=== PATIENT | male | born 1945 | race Caucasian/White ===

== ENCOUNTER 2018-08-04 15:44 | Inpatient (IN) | payer MEDICARE, BC ==
[~2018-08-04] VITALS: Ht 172.7 cm; Wt 76.7 kg
[2018-08-04 16:04] VITALS: BP 122/62
[2018-08-04] MEDS ORDERED: Sodium Chloride 500ML 500 ML IV ONE (16:30)
[2018-08-04 17:11] LABS: INR 1.3 (0.9-1.1)
[2018-08-04 17:15] LABS: ANION GAP 14 mmol/L (5-15); BLOOD UREA NITROGEN 25 mg/dL (7-18); CALCIUM 7.2 MG/DL (8.5-10.1); CARBON DIOXIDE 19 MMOL/L (21-32); CHLORIDE 105 MMOL/L (98-107); CREATININE 0.9 MG/DL (0.55-1.30); SODIUM 138 MMOL/L (136-145)
[2018-08-04] MEDS ORDERED: Albuterol ud Inhalation HHN ONE (17:15)
[2018-08-04] MEDS ORDERED: Albuterol/Ipratropium 3ml neb HHN ONE (17:15)
[2018-08-04] MEDS ORDERED: Solu-MEDROL 125mg Inj IVP ONE (17:15)
[2018-08-04 17:21] LABS: HEMATOCRIT 35.1 % (42.0-52.0); HEMOGLOBIN 11.3 G/DL (14.2-18.0); MEAN CORPUSCULAR VOLUME 89 FL (80-99); PLATELET COUNT 28 K/UL (150-450); RED BLOOD COUNT 3.95 M/UL (4.70-6.10); RED CELL DISTRIBUTION WIDTH 18.6 % (11.6-14.8); WHITE BLOOD COUNT 2.5 K/UL (4.8-10.8)
[2018-08-04 17:24] LABS: BASOPHILS % (AUTO) 0.5 % (0.0-2.0); LYMPHOCYTES % (AUTO) 16.8 % (20.0-45.0); MONOCYTES % (AUTO) 5.9 % (1.0-10.0); NEUTROPHILS % (AUTO) 76.8 % (45.0-75.0)
[2018-08-04 17:30] LABS: ALANINE AMINOTRANSFERASE 87 U/L (12-78); ALBUMIN 2.2 G/DL (3.4-5.0); ALBUMIN/GLOBULIN RATIO 0.8 (1.0-2.7); ALKALINE PHOSPHATASE 593 U/L (46-116); ASPARTATE AMINO TRANSFERASE 72 U/L (15-37); BILIRUBIN,TOTAL 2.9 MG/DL (0.2-1.0)
--- NOTE | 2018-08-04 17:31 | Emergency Room Report ---
History of Present Illness General Chief Complaint: Dyspnea/Respdistress Source: EMS Present Illness HPI Patient is a 73-year-old male brought in by [facility] department after increased difficulty breathing. The patient was noted to have prior history of Hodgkin's lymphoma. The patient had been given chemotherapy with brevituximab, Adriamycin, vinblastine and darcarbazine. Patient was noted to have increased shortness of breath during brevituximb infusion. Patient was noted to have had desaturation. The patient is currently a smoker and smokes approximate cigarettes per day. Patient presented been noted to be thrombocytopenic. Allergies: Coded Allergies: No Known Allergies (Unverified , 08/04/18) Nursing Documentation-[facility] Past Medical History: No History, Except For Hx Cancer: Yes - HODGKINS AND NON-HODGKINS LYMPHOMA History Of Psychiatric Problem: Yes - ANXIETY Physical Exam Vital Signs Date Time Temp Pulse Resp B/P (MAP) Pulse Ox O2 Delivery O2 Flow Rate FiO2 08/04/18 16:04 40 08/04/18 16:04 99.2 130 31 122/62 93 Bi-pap 99.2 General Appearance: alert, GCS 15, thin, Chronically Ill Head: normocephalic Eyes: bilateral eye normal inspection ENT: no angioedema, normal voice Neck: full range of motion Respiratory: decreased breath sounds, accessory muscle use, crackles Cardiovascular #1: no edema, tachycardia Gastrointestinal: normal inspection Genitourinary: normal inspection Musculoskeletal: normal inspection Neurologic: normal inspection, alert, oriented x3, responsive Psychiatric: normal inspection, judgement/insight normal Skin: mottled Procedures Critical Care Time Critical Care Time Patient had a critical medical condition which untreated could potentially result in life or limb threatening injury. Total critical care time excluding procedures approximately 45 minutes. Medical Decision Making Diagnostic Impression: Primary Impression: Metabolic acidosis Additional Impressions: Hodgkins lymphoma Chemotherapy adverse reaction Myocardial injury ER Course Patient is a 73-year-old male presented for shortness of breath.Differential included but was not limited to allergic reaction, anemia, pneumonia, pneumothorax, pulmonary embolism, myocardial infarction, pericardial effusion, congestive heart failure, acidosis. Because of complexity of patient's case laboratory testing and imaging studies were ordered.The patient was noted to be initially severely short of breath. Patient had been given first dose of chemotherapy with a monoclonal antibody infusion which was ongoing at the time of initial shortness of breath episode. The patient was started on IV steroids at the clinic. The patient was noted to have a chest x-ray with asymmetric infiltrate involving primarily the left lung. Patient was started on BiPAP due to respiratory distress he was started on IV fluids as well as breathing treatments.The patient was noted to have initially positive troponin. This is likely related to the patient's chemotherapy. The patient was noted to be thrombocytopenic and leukopenic.The patient was noted to have elevated lactic acid level. EKG shows sinus tachycardia. [facility] was contacted for possible transfer however they do not have capacity at this time. The patient was maintained on BiPAP and was noted to have some improvement in his respiratory status.Patient was not noted to be taking oxygen at home. Patient is a smoker. The patient denied to be appear to be stable for discharge due to continued difficulty breathing and hypoxemia.Dr. Felton was contacted for inpatient management due to need for inpatient monitoring and treatment due to panel physician. Dr. Solis saw the patient for cardiology consult. The patient been followed by [facility] at [facility]. I did contact the patient's oncology nurse practitioner. The patient was likely to have Neulasta treatment as well as the platelet transfusion in the coming days. Labs Test 08/04/18 15:57 08/04/18 16:30 Arterial Blood pH 7.446 (7.350-7.450) Arterial Blood Partial Pressure CO2 29.8 mmHg (35.0-45.0) Arterial Blood Partial Pressure O2 75.9 mmHg (75.0-100.0) Arterial Blood HCO3 20.1 mmol/L (22.0-26.0) Arterial Blood Oxygen Saturation 94.3 % (95-100) Arterial Blood Base Excess -3.2 (-2-2) Michael Test Positive White Blood Count 2.5 K/UL (4.8-10.8) Red Blood Count 3.95 M/UL (4.70-6.10) Hemoglobin 11.3 G/DL (14.2-18.0) Hematocrit 35.1 % (42.0-52.0) Mean Corpuscular Volume 89 FL (80-99) Mean Corpuscular Hemoglobin 28.6 PG (27.0-31.0) Mean Corpuscular Hemoglobin Concent 32.2 G/DL (32.0-36.0) Red Cell Distribution Width 18.6 % (11.6-14.8) Platelet Count 28 K/UL (150-450) Mean Platelet Volume 12.6 FL (6.5-10.1) Neutrophils (%) (Auto) 76.8 % (45.0-75.0) Lymphocytes (%) (Auto) 16.8 % (20.0-45.0) Monocytes (%) (Auto) 5.9 % (1.0-10.0) Eosinophils (%) (Auto) 0.0 % (0.0-3.0) Basophils (%) (Auto) 0.5 % (0.0-2.0) Prothrombin Time 13.4 SEC (9.30-11.50) Prothromb Time International Ratio 1.3 (0.9-1.1) Activated Partial Thromboplast Time 40 SEC (23-33) Sodium Level 138 MMOL/L (136-145) Potassium Level 4.0 MMOL/L (3.5-5.1) Chloride Level 105 MMOL/L (98-107) Carbon Dioxide Level 19 MMOL/L (21-32) Anion Gap 14 mmol/L (5-15) Blood Urea Nitrogen 25 mg/dL (7-18) Creatinine 0.9 MG/DL (0.55-1.30) Estimat Glomerular Filtration Rate mL/min (>60) Glucose Level 169 MG/DL (74-106) Lactic Acid Level 4.60 mmol/L (0.4-2.0) Calcium Level 7.2 MG/DL (8.5-10.1) Total Bilirubin 2.9 MG/DL (0.2-1.0) Direct Bilirubin 2.0 MG/DL (0.0-0.3) Aspartate Amino Transf (AST/SGOT) 72 U/L (15-37) Alanine Aminotransferase (ALT/SGPT) 87 U/L (12-78) Alkaline Phosphatase 593 U/L (46-116) Lactate Dehydrogenase 425 U/L (81-234) Troponin I 0.936 ng/mL (0.000-0.056) Total Protein 4.8 G/DL (6.4-8.2) Albumin 2.2 G/DL (3.4-5.0) Globulin 2.6 g/dL Albumin/Globulin Ratio 0.8 (1.0-2.7) Thyroid Stimulating Hormone (TSH) 0.429 uiU/mL (0.358-3.740) EKG Diagnostic Results Rate: tachycardiac Rhythm: NSR ST Segments: no acute changes Rhythm Strip Diag. Results EP Interpretation: yes Rhythm: no PVC's, no ectopy, other - tachycardia Last Vital Signs Date Time Temp Pulse Resp B/P (MAP) Pulse Ox O2 Delivery O2 Flow Rate FiO2 08/04/18 17:23 124 31 97 Bi-pap 40 08/04/18 16:38 122/62 08/04/18 16:04 99.2 99.2 Status: improved Disposition: ADMITTED INPATIENT Condition: Serious Referrals: NON PHYSICIAN (PCP) Joao Garcia MD Aug 04, 2018 17:31
--- NOTE | 2018-08-04 18:11 | Diagnostic Imaging Report ---
Indication: Shortness of breath Technique: One view of the chest Comparison: none Findings: Extensive diffuse interstitial and airspace opacities seen throughout the left lung. There may be some faint patchy consolidation in the right upper lobe and right lung apex as well. The pleural spaces are clear. The heart size is normal Impression: Extensive left lung interstitial and airspace disease. Differential is broad, including infectious and noninfectious inflammatory disease, unilateral pulmonary edema, among other possibilities. Correlate with clinical findings Equivocal faint patchy infiltrates in the right upper lobe. Findings previously discussed by phone with Dr. Garcia
--- NOTE | 2018-08-04 20:03 | Cardiology Progress Note ---
Assessment/Plan Assessment/Plan The patient is seen and examined, full consult note will be dictated shortly. Objective Last 24 Hour Vital Signs Date Time Temp Pulse Resp B/P (MAP) Pulse Ox O2 Delivery O2 Flow Rate FiO2 08/04/18 19:30 107 23 97 Facial 40 08/04/18 17:43 120 27 98 Bi-pap 40 08/04/18 17:23 124 31 97 Bi-pap 40 08/04/18 16:43 137 42 93 Facial 40 08/04/18 16:38 137 40 122/62 93 Room Air 08/04/18 16:04 138 45 Bi-pap 40 08/04/18 16:04 130 31 Bi-pap 40 08/04/18 16:04 138 47 95 Facial 40 08/04/18 16:04 99.2 130 31 122/62 93 Bi-pap 40 99.2 08/04/18 16:04 40 Laboratory Tests Test 08/04/18 15:57 08/04/18 16:30 Arterial Blood pH 7.446 (7.350-7.450) Arterial Blood Partial Pressure CO2 29.8 mmHg (35.0-45.0) L Arterial Blood Partial Pressure O2 75.9 mmHg (75.0-100.0) Arterial Blood HCO3 20.1 mmol/L (22.0-26.0) L Arterial Blood Oxygen Saturation 94.3 % (95-100) L Arterial Blood Base Excess -3.2 (-2-2) L Michael Test Positive White Blood Count 2.5 K/UL (4.8-10.8) L Red Blood Count 3.95 M/UL (4.70-6.10) L Hemoglobin 11.3 G/DL (14.2-18.0) L Hematocrit 35.1 % (42.0-52.0) L Mean Corpuscular Volume 89 FL (80-99) Mean Corpuscular Hemoglobin 28.6 PG (27.0-31.0) Mean Corpuscular Hemoglobin Concent 32.2 G/DL (32.0-36.0) Red Cell Distribution Width 18.6 % (11.6-14.8) H Platelet Count 28 K/UL (150-450) L Mean Platelet Volume 12.6 FL (6.5-10.1) H Neutrophils (%) (Auto) 76.8 % (45.0-75.0) H Lymphocytes (%) (Auto) 16.8 % (20.0-45.0) L Monocytes (%) (Auto) 5.9 % (1.0-10.0) Eosinophils (%) (Auto) 0.0 % (0.0-3.0) Basophils (%) (Auto) 0.5 % (0.0-2.0) Haptoglobin Pending Prothrombin Time 13.4 SEC (9.30-11.50) H Prothromb Time International Ratio 1.3 (0.9-1.1) H Activated Partial Thromboplast Time 40 SEC (23-33) H Sodium Level 138 MMOL/L (136-145) Potassium Level 4.0 MMOL/L (3.5-5.1) Chloride Level 105 MMOL/L (98-107) Carbon Dioxide Level 19 MMOL/L (21-32) L Anion Gap 14 mmol/L (5-15) Blood Urea Nitrogen 25 mg/dL (7-18) H Creatinine 0.9 MG/DL (0.55-1.30) Estimat Glomerular Filtration Rate mL/min (>60) Glucose Level 169 MG/DL (74-106) H Lactic Acid Level 4.60 mmol/L (0.4-2.0) H Calcium Level 7.2 MG/DL (8.5-10.1) L Total Bilirubin 2.9 MG/DL (0.2-1.0) H Direct Bilirubin 2.0 MG/DL (0.0-0.3) H Aspartate Amino Transf (AST/SGOT) 72 U/L (15-37) H Alanine Aminotransferase (ALT/SGPT) 87 U/L (12-78) H Alkaline Phosphatase 593 U/L (46-116) H Lactate Dehydrogenase 425 U/L (81-234) H Troponin I 0.936 ng/mL (0.000-0.056) Total Protein 4.8 G/DL (6.4-8.2) L Albumin 2.2 G/DL (3.4-5.0) L Globulin 2.6 g/dL Albumin/Globulin Ratio 0.8 (1.0-2.7) L Thyroid Stimulating Hormone (TSH) 0.429 uiU/mL (0.358-3.740) Ld Post MD Aug 04, 2018 20:03
[2018-08-04] MEDS ORDERED: Albuterol/Ipratropium 3ml neb HHN PRN (20:15)
[2018-08-04] MEDS ORDERED: Vancomycin 1.5 GM/D5W 250ML IVPB ONE (21:00)
[2018-08-04] MEDS ORDERED: Zolpidem 5mg tab ORAL PRN (22:15)
--- NOTE | 2018-08-04 22:41 | Infectious Diseases Prog Note ---
Assessment/Plan Assessment/Plan patient refused to be seen by ID , and he requested to go home . Subjective Allergies: Coded Allergies: No Known Allergies (Unverified , 08/04/18) Objective Vital Signs Last 24 Hour Vital Signs Date Time Temp Pulse Resp B/P (MAP) Pulse Ox O2 Delivery O2 Flow Rate FiO2 08/04/18 20:40 99.1 105 23 113/61 97 Bi-pap 15.0 25 99.2 08/04/18 19:30 107 23 97 Facial 40 08/04/18 17:43 120 27 98 Bi-pap 40 08/04/18 17:23 124 31 97 Bi-pap 40 08/04/18 16:43 137 42 93 Facial 40 08/04/18 16:38 137 40 122/62 93 Room Air 08/04/18 16:04 138 45 Bi-pap 40 08/04/18 16:04 130 31 Bi-pap 40 08/04/18 16:04 138 47 95 Facial 40 08/04/18 16:04 99.2 130 31 122/62 93 Bi-pap 40 99.2 08/04/18 16:04 40 Height (Feet): 5 Height (Inches): 8.00 Weight (Pounds): 170 Laboratory Tests Test 08/04/18 15:57 08/04/18 16:30 Arterial Blood pH 7.446 (7.350-7.450) Arterial Blood Partial Pressure CO2 29.8 mmHg (35.0-45.0) L Arterial Blood Partial Pressure O2 75.9 mmHg (75.0-100.0) Arterial Blood HCO3 20.1 mmol/L (22.0-26.0) L Arterial Blood Oxygen Saturation 94.3 % (95-100) L Arterial Blood Base Excess -3.2 (-2-2) L Michael Test Positive White Blood Count 2.5 K/UL (4.8-10.8) L Red Blood Count 3.95 M/UL (4.70-6.10) L Hemoglobin 11.3 G/DL (14.2-18.0) L Hematocrit 35.1 % (42.0-52.0) L Mean Corpuscular Volume 89 FL (80-99) Mean Corpuscular Hemoglobin 28.6 PG (27.0-31.0) Mean Corpuscular Hemoglobin Concent 32.2 G/DL (32.0-36.0) Red Cell Distribution Width 18.6 % (11.6-14.8) H Platelet Count 28 K/UL (150-450) L Mean Platelet Volume 12.6 FL (6.5-10.1) H Neutrophils (%) (Auto) 76.8 % (45.0-75.0) H Lymphocytes (%) (Auto) 16.8 % (20.0-45.0) L Monocytes (%) (Auto) 5.9 % (1.0-10.0) Eosinophils (%) (Auto) 0.0 % (0.0-3.0) Basophils (%) (Auto) 0.5 % (0.0-2.0) Haptoglobin Pending Prothrombin Time 13.4 SEC (9.30-11.50) H Prothromb Time International Ratio 1.3 (0.9-1.1) H Activated Partial Thromboplast Time 40 SEC (23-33) H Sodium Level 138 MMOL/L (136-145) Potassium Level 4.0 MMOL/L (3.5-5.1) Chloride Level 105 MMOL/L (98-107) Carbon Dioxide Level 19 MMOL/L (21-32) L Anion Gap 14 mmol/L (5-15) Blood Urea Nitrogen 25 mg/dL (7-18) H Creatinine 0.9 MG/DL (0.55-1.30) Estimat Glomerular Filtration Rate mL/min (>60) Glucose Level 169 MG/DL (74-106) H Lactic Acid Level 4.60 mmol/L (0.4-2.0) H Calcium Level 7.2 MG/DL (8.5-10.1) L Total Bilirubin 2.9 MG/DL (0.2-1.0) H Direct Bilirubin 2.0 MG/DL (0.0-0.3) H Aspartate Amino Transf (AST/SGOT) 72 U/L (15-37) H Alanine Aminotransferase (ALT/SGPT) 87 U/L (12-78) H Alkaline Phosphatase 593 U/L (46-116) H Lactate Dehydrogenase 425 U/L (81-234) H Troponin I 0.936 ng/mL (0.000-0.056) Total Protein 4.8 G/DL (6.4-8.2) L Albumin 2.2 G/DL (3.4-5.0) L Globulin 2.6 g/dL Albumin/Globulin Ratio 0.8 (1.0-2.7) L Thyroid Stimulating Hormone (TSH) 0.429 uiU/mL (0.358-3.740) Current Medications Medications (Trade) Dose Ordered Sig/Jorje Route PRN Reason Start Time Stop Time Status Last Admin Dose Admin Albuterol/ Ipratropium (Albuterol/ Ipratropium) 3 ml Q4H PRN HHN Shortness of Breath 08/04/18 20:15 08/09/18 20:14 Albuterol/ Ipratropium (Albuterol/ Ipratropium) 3 ml Q6HRT HHN 08/05/18 01:00 08/10/18 00:59 Piperacillin Sod/ Tazobactam Sod 3.375 gm/Sodium Chloride 110 ml @ 27.5 mls/hr EVERY 8 HOURS IVPB 08/04/18 23:00 08/11/18 22:59 Vancomycin HCl (Vanco rx to dose) 1 ea DAILY PRN MISC Per rx protocol 08/04/18 20:15 09/03/18 20:14 Vancomycin HCl/ Dextrose 250 ml @ 125 mls/hr ONCE ONCE IVPB 08/04/18 21:00 08/04/18 22:59 08/04/18 20:54 Vancomycin HCl/ Dextrose 250 ml @ 166.667 mls/hr Q24H IVPB 08/05/18 21:00 08/10/18 20:59 Zolpidem Tartrate (Ambien) 5 mg HSPRN PRN ORAL Insomnia 08/04/18 22:15 08/11/18 22:14 Norm Croft M.D. Aug 04, 2018 22:41
[2018-08-04] MEDS: Piperacillin/Tazobactam 3.375 GM in NS 110 ML IVPB SCH (22:52)
[2018-08-05] VITALS: BP 122/67
[2018-08-05 00:02] LABS: IRON 70 ug/dL (50-175); TOTAL IRON BINDING CAPACITY 173 ug/dL (250-450)
[2018-08-05 00:04] LABS: % IRON SATURATION 40 % (15-50)
[2018-08-05] MEDS: Albuterol/Ipratropium 3ml neb HHN SCH ×2 (01:47→07:43)
[2018-08-05 02:19] LABS: APPEARANCE,URINE CLEAR; BILIRUBIN, URINE NEGATIVE (NEGATIVE); GLUCOSE, URINE (UA) NEGATIVE (NEGATIVE); KETONES,URINE NEGATIVE (NEGATIVE); LEUKOCYTE ESTERASE ,URINE NEGATIVE (NEGATIVE); NITRITE,URINE NEGATIVE (NEGATIVE); PH,URINE 5 (4.5-8.0); PROTEIN,URINE NEGATIVE (NEGATIVE); UROBILINOGEN,URINE NORMAL MG/DL (0.0-1.0)
[2018-08-05 02:32] LABS: COLOR,URINE YELLOW
[2018-08-05] MEDS: Piperacillin/Tazobactam 3.375 GM in NS 110 ML IVPB SCH (05:29)
--- NOTE | 2018-08-05 07:24 | Consultation ---
Consult Note Consult Note Hematology Consultation MITCHELL LEAL: Christa Felton DOS: 08/05/2018 Chief Complaint: Dyspnea/Respdistress RFC: Hodgkin's Lymphoma eval CESIA Patient is a 73-year-old male brought in by [facility] department after increased difficulty breathing. 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 Wild at [facility]. The patient was noted to have prior history of Hodgkin's lymphoma. The patient had been given chemotherapy with brevituximab, Adriamycin, vinblastine and darcarbazine (ABVD). Has increased shortness of breath during brevituximb infusion. Patient was noted to have had desaturation. The patient is currently a smoker and smokes approximate cigarettes per day. Patient presented been noted to be thrombocytopenic. Allergies: No Known Allergies (Unverified , 08/04/18) Past Medical History: No History, Except For Hx Cancer: Yes - HODGKINS AND NON-HODGKINS LYMPHOMA History Of Psychiatric Problem: Yes - ANXIETY Review of Systems ROS has been completed and is negative PE: Last 24 Hour Vital Signs Date Time Temp Pulse Resp B/P (MAP) Pulse Ox O2 Delivery O2 Flow Rate FiO2 08/05/18 05:26 104 95 12.0 50 08/05/18 04:05 97 08/05/18 04:00 Bi-pap 08/05/18 04:00 40 08/05/18 01:49 107 20 99 Venturi Mask 12.0 50 08/05/18 01:47 104 20 97 Venturi Mask 12.0 50 08/05/18 01:00 96 Venturi Mask 10.0 45 08/05/18 01:00 Venturi Mask 10.0 45 08/05/18 00:00 Bi-pap 08/05/18 00:00 107 08/05/18 00:00 40 08/05/18 00:00 97.3 108 28 122/67 (85) 94 97.3 08/04/18 22:59 Bi-pap 08/04/18 22:57 107 92 15.0 55 08/04/18 21:00 102 55.0 08/04/18 20:40 99.1 105 23 113/61 97 Bi-pap 15.0 25 99.2 08/04/18 19:35 125 08/04/18 19:30 107 23 97 Facial 40 08/04/18 17:43 120 27 98 Bi-pap 40 08/04/18 17:23 124 31 97 Bi-pap 40 08/04/18 16:43 137 42 93 Facial 40 08/04/18 16:38 137 40 122/62 93 Room Air 08/04/18 16:04 138 45 Bi-pap 40 08/04/18 16:04 130 31 Bi-pap 40 08/04/18 16:04 138 47 95 Facial 40 08/04/18 16:04 99.2 130 31 122/62 93 Bi-pap 40 99.2 08/04/18 16:04 40 General: alert, thin, chronically Ill Head: normocephalic Eyes: bilateral eye normal inspection Neck: full range of motion Resp: decreased breath sounds, accessory muscle use, crackles Cardiovascular #1: no edema, tachycardia Gastrointestinal: normal inspection Genitourinary: normal inspection Neurologic: normal inspection, alert, oriented x3, responsive Psychiatric: normal inspection, judgement/i normal Skin: mottled Labs Test 08/04/18 15:57 08/04/18 16:30 Arterial Blood pH 7.446 (7.350-7.450) Arterial Blood Partial Pressure CO2 29.8 mmHg (35.0-45.0) Arterial Blood Partial Pressure O2 75.9 mmHg (75.0-100.0) Arterial Blood HCO3 20.1 mmol/L (22.0-26.0) Arterial Blood Oxygen Saturation 94.3 % (95-100) Arterial Blood Base Excess -3.2 (-2-2) Michael Test Positive White Blood Count 2.5 K/UL (4.8-10.8) Red Blood Count 3.95 M/UL (4.70-6.10) Hemoglobin 11.3 G/DL (14.2-18.0) Hematocrit 35.1 % (42.0-52.0) Mean Corpuscular Volume 89 FL (80-99) Mean Corpuscular Hemoglobin 28.6 PG (27.0-31.0) Mean Corpuscular Hemoglobin Concent 32.2 G/DL (32.0-36.0) Red Cell Distribution Width 18.6 % (11.6-14.8) Platelet Count 28 K/UL (150-450) Mean Platelet Volume 12.6 FL (6.5-10.1) Neutrophils (%) (Auto) 76.8 % (45.0-75.0) Lymphocytes (%) (Auto) 16.8 % (20.0-45.0) Monocytes (%) (Auto) 5.9 % (1.0-10.0) Eosinophils (%) (Auto) 0.0 % (0.0-3.0) Basophils (%) (Auto) 0.5 % (0.0-2.0) Prothrombin Time 13.4 SEC (9.30-11.50) Prothromb Time International Ratio 1.3 (0.9-1.1) Activated Partial Thromboplast Time 40 SEC (23-33) Sodium Level 138 MMOL/L (136-145) Potassium Level 4.0 MMOL/L (3.5-5.1) Chloride Level 105 MMOL/L (98-107) Carbon Dioxide Level 19 MMOL/L (21-32) Anion Gap 14 mmol/L (5-15) Blood Urea Nitrogen 25 mg/dL (7-18) Creatinine 0.9 MG/DL (0.55-1.30) Estimat Glomerular Filtration Rate mL/min (>60) Glucose Level 169 MG/DL (74-106) Lactic Acid Level 4.60 mmol/L (0.4-2.0) Calcium Level 7.2 MG/DL (8.5-10.1) Total Bilirubin 2.9 MG/DL (0.2-1.0) Direct Bilirubin 2.0 MG/DL (0.0-0.3) Aspartate Amino Transf (AST/SGOT) 72 U/L (15-37) Alanine Aminotransferase (ALT/SGPT) 87 U/L (12-78) Alkaline Phosphatase 593 U/L (46-116) Lactate Dehydrogenase 425 U/L (81-234) Troponin I 0.936 ng/mL (0.000-0.056) Total Protein 4.8 G/DL (6.4-8.2) Albumin 2.2 G/DL (3.4-5.0) Globulin 2.6 g/dL Albumin/Globulin Ratio 0.8 (1.0-2.7) Thyroid Stimulating Hormone (TSH) 0.429 uiU/mL (0.358-3.740) Assessment and Recs: # Hodgkin's Lymphoma -- patient had been given first dose of chemotherapy with a monoclonal antibody infusion which was ongoing at the time of initial shortness of breath episode. The patient was started on IV steroids at the clinic. --> ABVD administered and patient had a drug reaction, and thus will monitor in the future if has a drug reaction --> Continue to followup with Dr. Gary Wild once discharged --> patient wants to leave STAT/AMA, have discussed that he needs to see the pump attendant prior to discharged --> okay to hold off on neupogen if ANC <1500 # Pancytopenia -- likely due to chemotherapy recently received --> neulasta and prbc as needed, may be getting some once discharged --> transfuse prn hgb <7 --> okay to hold off on neupogen if ANC <1500 --> from hematology perspective, is ok to discharge and will need outpatient f/ u with the clinic # Shortness of breath.Differential included but was not limited to allergic reaction, anemia, pneumonia, pneumothorax, pulmonary embolism, myocardial infarction, pericardial effusion, congestive heart failure, acidosis --> asymmetric infiltrate involving primarily the left lung. Patient was started on BiPAP due to respiratory distress he was started on IV fluids as well as breathing treatments --> biPAP and was noted to have some improvement in his respiratory status. # Metabolic acidosis # Myocardial injury Great appreciate consultation! Cong Espinoza MD Aug 05, 2018 07:24
--- NOTE | 2018-08-05 07:53 | Consultation ---
Consult Note Assessment/Plan Patient seen and examined. D/W PMD, ONC and CARDS Nithin Morales MD Aug 05, 2018 07:53
[2018-08-05 08:00] VITALS: BP 118/62
[2018-08-05] MEDS ORDERED: NS 275ml ONE (08:49)
[2018-08-05] MEDS ORDERED: Tubing IV Secondary IV ONE (08:49)
[2018-08-05] MEDS ORDERED: Enoxaparin 60mg Inj SUBQ SCH (09:00)
--- NOTE | 2018-08-05 10:00 | History & Physical ---
History and Physical History & Physicial HPI Patient is a 73-year-old male brought in by [facility] department after increased difficulty breathing. 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 Wild at [facility]. The patient was noted to have prior history of Hodgkin's lymphoma. The patient had been given chemotherapy with brevituximab, Adriamycin, vinblastine and darcarbazine (ABVD). Has increased shortness of breath during brevituximb infusion. Patient was noted to have had desaturation. The patient is currently a smoker and smokes approximate cigarettes per day. Patient presented been noted to be thrombocytopenic. Allergies: No Known Allergies (Unverified , 08/04/18) Past Medical History: No History, Except For Hx Cancer: Yes - HODGKINS AND NON-HODGKINS LYMPHOMA History Of Psychiatric Problem: Yes - ANXIETY Review of Systems ROS has been completed and is negative PE: Last 24 Hour Vital Signs Date Time Temp Pulse Resp B/P (MAP) Pulse Ox O2 Delivery O2 Flow Rate FiO2 08/05/18 05:26 104 95 12.0 50 08/05/18 04:05 97 08/05/18 04:00 Bi-pap 08/05/18 04:00 40 08/05/18 01:49 107 20 99 Venturi Mask 12.0 50 08/05/18 01:47 104 20 97 Venturi Mask 12.0 50 08/05/18 01:00 96 Venturi Mask 10.0 45 08/05/18 01:00 Venturi Mask 10.0 45 08/05/18 00:00 Bi-pap 08/05/18 00:00 107 08/05/18 00:00 40 08/05/18 00:00 97.3 108 28 122/67 (85) 94 97.3 08/04/18 22:59 Bi-pap 08/04/18 22:57 107 92 15.0 55 08/04/18 21:00 102 55.0 08/04/18 20:40 99.1 105 23 113/61 97 Bi-pap 15.0 25 99.2 08/04/18 19:35 125 08/04/18 19:30 107 23 97 Facial 40 08/04/18 17:43 120 27 98 Bi-pap 40 08/04/18 17:23 124 31 97 Bi-pap 40 08/04/18 16:43 137 42 93 Facial 40 08/04/18 16:38 137 40 122/62 93 Room Air 08/04/18 16:04 138 45 Bi-pap 40 08/04/18 16:04 130 31 Bi-pap 40 08/04/18 16:04 138 47 95 Facial 40 08/04/18 16:04 99.2 130 31 122/62 93 Bi-pap 40 99.2 08/04/18 16:04 40 General: alert, thin, chronically Ill Head: normocephalic Eyes: bilateral eye normal inspection Neck: full range of motion Resp: decreased breath sounds, accessory muscle use, crackles Cardiovascular #1: no edema, tachycardia Gastrointestinal: normal inspection Genitourinary: normal inspection Neurologic: normal inspection, alert, oriented x3, responsive Psychiatric: normal inspection, judgement/i normal Skin: mottled Labs Test 08/04/18 15:57 08/04/18 16:30 Arterial Blood pH 7.446 (7.350-7.450) Arterial Blood Partial Pressure CO2 29.8 mmHg (35.0-45.0) Arterial Blood Partial Pressure O2 75.9 mmHg (75.0-100.0) Arterial Blood HCO3 20.1 mmol/L (22.0-26.0) Arterial Blood Oxygen Saturation 94.3 % (95-100) Arterial Blood Base Excess -3.2 (-2-2) Michael Test Positive White Blood Count 2.5 K/UL (4.8-10.8) Red Blood Count 3.95 M/UL (4.70-6.10) Hemoglobin 11.3 G/DL (14.2-18.0) Hematocrit 35.1 % (42.0-52.0) Mean Corpuscular Volume 89 FL (80-99) Mean Corpuscular Hemoglobin 28.6 PG (27.0-31.0) Mean Corpuscular Hemoglobin Concent 32.2 G/DL (32.0-36.0) Red Cell Distribution Width 18.6 % (11.6-14.8) Platelet Count 28 K/UL (150-450) Mean Platelet Volume 12.6 FL (6.5-10.1) Neutrophils (%) (Auto) 76.8 % (45.0-75.0) Lymphocytes (%) (Auto) 16.8 % (20.0-45.0) Monocytes (%) (Auto) 5.9 % (1.0-10.0) Eosinophils (%) (Auto) 0.0 % (0.0-3.0) Basophils (%) (Auto) 0.5 % (0.0-2.0) Prothrombin Time 13.4 SEC (9.30-11.50) Prothromb Time International Ratio 1.3 (0.9-1.1) Activated Partial Thromboplast Time 40 SEC (23-33) Sodium Level 138 MMOL/L (136-145) Potassium Level 4.0 MMOL/L (3.5-5.1) Chloride Level 105 MMOL/L (98-107) Carbon Dioxide Level 19 MMOL/L (21-32) Anion Gap 14 mmol/L (5-15) Blood Urea Nitrogen 25 mg/dL (7-18) Creatinine 0.9 MG/DL (0.55-1.30) Estimat Glomerular Filtration Rate mL/min (>60) Glucose Level 169 MG/DL (74-106) Lactic Acid Level 4.60 mmol/L (0.4-2.0) Calcium Level 7.2 MG/DL (8.5-10.1) Total Bilirubin 2.9 MG/DL (0.2-1.0) Direct Bilirubin 2.0 MG/DL (0.0-0.3) Aspartate Amino Transf (AST/SGOT) 72 U/L (15-37) Alanine Aminotransferase (ALT/SGPT) 87 U/L (12-78) Alkaline Phosphatase 593 U/L (46-116) Lactate Dehydrogenase 425 U/L (81-234) Troponin I 0.936 ng/mL (0.000-0.056) Total Protein 4.8 G/DL (6.4-8.2) Albumin 2.2 G/DL (3.4-5.0) Globulin 2.6 g/dL Albumin/Globulin Ratio 0.8 (1.0-2.7) Thyroid Stimulating Hormone (TSH) 0.429 uiU/mL (0.358-3.740) Assessment and Recs: # Hodgkin's Lymphoma -- patient had been given first dose of chemotherapy with a monoclonal antibody infusion which was ongoing at the time of initial shortness of breath episode. The patient was started on IV steroids at the clinic. --> ABVD administered and patient had a drug reaction, and thus will monitor in the future if has a drug reaction --> Continue to followup with Dr. Gary Wild once discharged --> patient wants to leave STAT/AMA, have discussed that he needs to see the nutrition services associate prior to discharged --> okay to hold off on neupogen if ANC <1500 # Pancytopenia -- likely due to chemotherapy recently received --> neulasta and prbc as needed, may be getting some once discharged --> transfuse prn hgb <7 --> okay to hold off on neupogen if ANC <1500 --> from hematology perspective, is ok to discharge and will need outpatient f/ u with the clinic # Shortness of breath.Differential included but was not limited to allergic reaction, anemia, pneumonia, pneumothorax, pulmonary embolism, myocardial infarction, pericardial effusion, congestive heart failure, acidosis --> asymmetric infiltrate involving primarily the left lung. Patient was started on BiPAP due to respiratory distress he was started on IV fluids as well as breathing treatments --> biPAP and was noted to have some improvement in his respiratory status. # Metabolic acidosis # NSTEMI Plan: Patient is advised to stay in hospital , patient is explained about the current medical cnd, and consequences for leaving the hospital at this time, including but not limited to . He understands, however wants to leave AMA Lea Felton MD Aug 05, 2018 10:00
--- NOTE | 2018-08-05 18:30 | Consultation ---
DATE OF CONSULTATION: 08/04/2018 CARDIOLOGY CONSULTATION CONSULTING PHYSICIAN: Ld Post M.D. REFERRING PHYSICIAN: Lea Felton M.D. REASON FOR CONSULTATION: Management of shortness of breath from cardiac standpoint. HISTORY OF PRESENT ILLNESS: The patient is a very unfortunate 73-year-old gentleman who is seen in [facility] emergency department after he was brought in by [facility] with increased difficulty breathing. The patient has history of Hodgkin lymphoma and recently underwent chemotherapy with brentuximab, Adriamycin, vinblastine, and dacarbazine. The patient was noted to have increased shortness of breath during brentuximab infusion. He had oxygen desaturation noted by [facility]. The patient was brought to [facility] for further evaluation and management. At the time of ER evaluation, blood pressure was 122/62, heart rate was 130, respirations 31, temperature 99.2 degrees Fahrenheit, and O2 saturation was 93% on BiPAP mask, and FiO2 of 40%. At this time, the patient denies any chest pain. He has his next to him. He states that he had similar events during the other chemotherapeutic regimen in the past. He states that he had 2D echocardiography about two weeks ago and apparently the results of that was within normal limits and he was cleared to go for another chemotherapy course. He is seen by [facility] at [facility]. PAST MEDICAL HISTORY: Hodgkin lymphoma. PAST SURGICAL HISTORY: None. ALLERGIES: No known drug allergies. REVIEW OF SYSTEMS: HEENT: Denies any headache, diplopia, or blurred vision. CONSTITUTIONAL: Complains of generalized weakness, but no fever, chills, night sweats, or weight loss. CARDIOVASCULAR: Denies any chest pain. Complaining of shortness of breath. Denies any PND, orthopnea, leg swelling, syncope, or palpitation. PULMONARY: Denies any cough or wheezing. Complains of dyspnea. GASTROINTESTINAL: Denies any nausea, vomiting, diarrhea, constipation, abdominal pain, or GI bleed. GENITOURINARY: Denies any hematuria, dysuria, or incontinence. NEUROLOGY: Denies any motor dysfunction, sensory deficit, or altered speech. SOCIAL HISTORY: He smokes cigarettes about a pack per day. Denies any alcohol or illicit drug use. MEDICATIONS: List of medications at home, none. List of medications inpatient, DuoNeb 3 mL HHN, enoxaparin 60 mg subcutaneous q.12 h., vancomycin 1.25 g q.24 h. and Ambien 5 mg p.r.n. insomnia. PHYSICAL EXAMINATION: VITAL SIGNS: In the emergency department, blood pressure was 122/62, pulse of 130, respirations of 31, O2 saturation 92% on BiPAP mask, FiO2 of 40%, and temperature 99.2 degrees Fahrenheit. GENERAL: The patient is a very unfortunate 73-year-old gentleman, chronically ill looking, on BiPAP mask, and dehydrated. HEENT: Atraumatic and normocephalic. Anicteric. Pupils are equal, round, and reactive to light and accommodation. Extraocular muscles intact. Dry mucosal membranes. NECK: JVP cannot be assessed because of BiPAP mask. No carotid bruit. Carotid upstrokes 2+ bilaterally. CARDIOVASCULAR: Normal S1, S2. Tachycardic. Cannot appreciate any murmurs, gallops, or rubs. LUNGS: Bibasilar crackles. ABDOMEN: Soft, nontender, and nondistended. No hepatosplenomegaly. Positive bowel sounds. EXTREMITIES: No evidence of edema, clubbing, or cyanosis. LABORATORY FINDINGS: WBC 2.5, hemoglobin 11.3, hematocrit 35.1, and platelet count is . Sodium is 138, potassium is 4.0, chloride 105, bicarbonate is 19, BUN of 25, creatinine 0.9, glucose is 169, and calcium is 7.2. Troponin I is 0.936. INR is 1.3, PT is 13.4, and PTT of 40. Blood gas, pH of 7.44, pCO2 of 29.8, pO2 of 75.9, and O2 saturation 94%. DIAGNOSTIC DATA: Chest x-ray shows bilateral patchy infiltration mostly in the left lung with normal cardiac silhouette, may suggest infectious and noninfectious inflammatory conditions as well as heart failure. A 12-lead electrocardiogram was significant for sinus tachycardia, heart rate of 130, no acute ST and T-wave abnormalities. ASSESSMENT AND PLAN: The patient is a very unfortunate 73-year-old gentleman, seen in Cardiology consultation at request of Dr. Felton. 1. Dyspnea with diffuse pulmonary interstitial edema, evident on chest x-ray. It could be a lymphatic spread of the cancer, pneumonitis following chemotherapeutic agents, less likely heart failure given the normal cardiac silhouette and the fact that the pattern of infiltration not quite typical for heart failure, lack of cephalization, and the fact that the 2D echocardiography was within normal about two weeks ago. We cannot rule out acute heart failure, however, we would like to obtain 2D echocardiography for assessment of LV systolic and diastolic function. Discussed with Dr. Garcia in the emergency department, and both agreed that the patient may benefit from some IV fluid administration as he appears to be clinically dry as well. 2. Slight elevation of troponin I level could be due to tachycardia. Pulmonary embolism is also a consideration given the underlying malignancy. A 2D echocardiography can also provide some information regarding RV strain and pulmonary hypertension. 3. Sinus tachycardia likely due to hypoxemia. No AV calixto agent at this point. We will try to larry all the underlying etiologies including dehydration, providing adequate oxygenation for the O2 desaturation and likely pain control and also rule out pulmonary embolism as this is also a cause for sinus tachycardia. The total amount of time spent in evaluation of this patient in emergency department of [facility] was over 50 minutes. This includes review of old record, discussing the plan of care with the primary care physician, emergency department physician as well as the nursing staff. I would like to thank, Dr. Felton, for the courtesy of this consultation. Ld Post M.D. DR: KAILASH JOB#: [id number] CC:
--- NOTE | 2018-08-05 19:03 | Cardiology Report ---
APPROVED REPORT EKG Measurement Heart [id number] Sinus tachycardia Possible Left atrial enlargement Left axis deviation Septal infarct, age undetermined Abnormal ECG
[2018-08-05] MEDS ORDERED: Vancomycin 1250mg/D5W 250ml IVPB SCH (21:00)
--- NOTE | 2018-08-05 22:45 | Consultation ---
DATE OF CONSULTATION: PULMONARY CONSULTATION CONSULTING PHYSICIAN: Nithin Morales M.D. REFERRING PHYSICIAN: Lea Felton M.D. REASON FOR CONSULTATION: Dyspnea. HISTORY OF PRESENT ILLNESS: The patient is a 73-year-old male with recurrent non-Hodgkin lymphoma, started on ABVD, was getting chemotherapy at Dr. Wild's office/[facility]. Yesterday when he became acutely hypoxemic and short of breath, he was getting brentuximab, Adriamycin, vinblastine, and dacarbazine. During the brentuximab infusion, he became acutely short of breath and desaturated. He was brought to the ER for further evaluation and management. In the hospital, he has been afebrile with a T-max of 99.2 and hypoxemic, on a Venturi mask, which is now off and he is saturating well on room air. He was tachycardic, which has since resolved. He had a white count of 2.5, hemoglobin of 11.3, and a platelet count of 28,000. ABG was 7.44//75//. He had a rbe-CB-fivbbmhnh DC with a troponin peak of 2.80. Repeat troponin is pending. BNP was elevated. He had a lactic acidosis, which has resolved. He was started empirically on vancomycin and Zosyn. He also received steroids in the ER. I gave him a dose of Lasix after which his oxygenation improved. Despite of his thrombocytopenia, he was started on Lovenox for [id number]-WW-rauncslis DC. He was seen and evaluated by Cardiology and Hematology. This morning, he is demanding to leave against medical advice. I offered to set up transfer to [facility], but he declined. Despite conversations with myself, Dr. Espinoza, and the nurse, Nicolasa Peng, he refused to wait. Risks, benefits, and alternatives were discussed. The risks of in the setting of PE or myocardial infarction were discussed as well and he signed out ultimately against medical advice. His x-ray showed interstitial and airspace opacities concerning for pneumonia or pulmonary edema. PAST MEDICAL HISTORY: 1. Recurrent non-Hodgkin's lymphoma. 2. Possible COPD. 3. Pancytopenia. ALLERGIES: No known drug allergies. MEDICATIONS: Prior to admission, medications reviewed. Current medications reviewed. SOCIAL HISTORY: He is a current daily smoker. 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 FAMILY HISTORY: Noncontributory. REVIEW OF SYSTEMS: Negative other than history of present illness. PHYSICAL EXAMINATION: VITAL SIGNS: Temperature 97.5 degrees, pulse 72, blood pressure 118/96, saturation 96% on room air at the time of my evaluation, and respiratory rate 16. GENERAL: He is a well-developed, well-nourished male, in no acute distress. Awake, alert, and oriented x3. HEENT: Normocephalic and atraumatic. Oropharynx is clear with moist mucous membranes. NECK: Supple without lymphadenopathy or JVD. CHEST: Scattered coarse breath sounds, decreased at the bases. HEART: Regular rate and rhythm. ABDOMEN: Soft, nontender, and nondistended. EXTREMITIES: No cyanosis, clubbing, or edema. ANCILLARY DATA: White count 2.5, hemoglobin 11.3, and platelet count 28,000. ABG 7.44/29/75/20/94. INR 1.3. D-dimer 2.34. Lactic acid 4.60/2.1. LDH 425. Troponin 0.9/2.8. BNP at 2466. Sodium 138, potassium 4, chloride 105, bicarb 19, gap 14, BUN 25, creatinine 0.9, glucose 116, and calcium 7.2. Total bilirubin 2.9, direct bilirubin 2.0, AST 72, ALT 87, alkaline phosphatase 593, total protein 4.8, albumin 2.2, globulin 2.6, and albumin/globulin ratio 0.8. ASSESSMENT: The patient is a 73-year-old male, smoker with recurrent non-Hodgkin's lymphoma, currently on chemotherapy, presenting with shortness of breath and hypoxemia during an infusion of brentuximab. Differential diagnosis of the patient's dyspnea secondary to pulmonary edema, drug toxicity, PE, ACS, or possible pneumonia. He improved with diuretics, which makes me suspect that there is likely a component of pulmonary edema. Echocardiogram has not been done yet and he is leaving AMA at this time despite all the risks, benefits, and alternatives being discussed with him. PROBLEMS LIST: 1. Acute hypoxemic respiratory failure. 2. Likely pulmonary edema. 3. Bilateral pulmonary infiltrates. 4. Possible pneumonia. 5. Elevated D-dimer, concerning for possible PE. 6. Vro-JC-nnitrszwa DC. 7. Pancytopenia. 8. Abnormal LFTs. 9. Recurrent non-Hodgkin's lymphoma, on chemotherapy. 10. Protein-calorie malnutrition. 11. Lactic acidosis, resolved. 12. Non-anion gap metabolic acidosis. 13. Current daily smoker. TREATMENT PLAN: 1. Optimize pulmonary hygiene/mobilize as tolerated. 2. Titrate down FiO2 to keep saturations greater than 90%. 3. P.r.n. BiPAP. 4. Monitor volumes and renal function, p.r.n. diuresis as tolerated. 5. Continue antibiotics per ID. 6. Follow up repeat EKG and troponin. 7. Telemetry. 8. Given ACS, the patient is on anticoagulation with platelet transfusion support. 9. Follow up echocardiogram. 10. Monitor gas exchange. 11. Hematology/Oncology recommendations noted and appreciated. 12. Message left for Dr. Gary Wild, patient's primary oncologist. 13. Despite above plan and discussion of the risks of leaving, the patient opted to sign out against medical advice and go to his appointment at [facility] this afternoon at 3 o'clock. Strict return precautions to the ER were given to the patient who did verbalize understanding. Nithin Morales M.D. DR: PAUL JOB#: [id number] CC:
--- NOTE | 2018-08-05 23:54 | Cardiology Progress Note ---
Assessment/Plan Assessment/Plan 1. Dyspnea with diffuse pulmonary interstitial edema, evident on chest x-ray. It could be a lymphatic spread of the cancer, pneumonitis following chemotherapeutic agents, less likely heart failure given the normal cardiac silhouette and the fact that the pattern of infiltration not quite typical for heart failure, refused 2D echocardiography. 2. Slight elevation of troponin I level could be due to tachycardia. Pulmonary embolism is also a consideration given the underlying malignancy. A 2D echocardiography can also provide some information regarding RV strain and pulmonary hypertension, however he is refusing this test at this time. 3. Sinus tachycardia, resolved, likely due to hypoxemia. Subjective Subjective Refusing medication and tests. Sinus rhythm at 73. Objective Last 24 Hour Vital Signs Date Time Temp Pulse Resp B/P (MAP) Pulse Ox O2 Delivery O2 Flow Rate FiO2 08/05/18 08:00 97.5 73 16 118/62 (80) 96 97.5 08/05/18 08:00 Bi-pap 08/05/18 08:00 40 08/05/18 07:53 112 08/05/18 07:46 106 20 97 Venturi Mask 12.0 50 08/05/18 07:35 Venturi Mask 10.0 45 08/05/18 07:35 103 18 96 Venturi Mask 12.0 50 08/05/18 07:35 96 Venturi Mask 12.0 50 08/05/18 07:35 50 08/05/18 05:26 104 95 12.0 50 08/05/18 04:05 97 08/05/18 04:00 Bi-pap 08/05/18 04:00 40 08/05/18 01:49 107 20 99 Venturi Mask 12.0 50 08/05/18 01:47 104 20 97 Venturi Mask 12.0 50 08/05/18 01:00 96 Venturi Mask 10.0 45 08/05/18 01:00 Venturi Mask 10.0 45 08/05/18 00:00 Bi-pap 08/05/18 00:00 107 08/05/18 00:00 40 08/05/18 00:00 97.3 108 28 122/67 (85) 94 97.3 Intake and Output 08/04/18 08/05/18 19:00 07:00 Intake Total 600 ml 390.0 ml Output Total 2300 ml Balance 600 ml -1910.0 ml Intake Oral 280 ml IV Total 600 ml 110.0 ml Output Urine Total 2300 ml # Bowel Movements 4 Objective HEENT: Atraumatic and normocephalic. Anicteric. Pupils are equal, round, and reactive to light and accommodation. Extraocular muscles intact. Dry mucosal membranes. NECK: JVP cannot be assessed because of BiPAP mask. No carotid bruit. Carotid upstrokes 2+ bilaterally. CARDIOVASCULAR: Normal S1, S2. Tachycardic. Cannot appreciate any murmurs, gallops, or rubs. LUNGS: Bibasilar crackles. ABDOMEN: Soft, nontender, and nondistended. No hepatosplenomegaly. Positive bowel sounds. EXTREMITIES: No evidence of edema, clubbing, or cyanosis. Ld Post MD Aug 05, 2018 23:54
--- NOTE | 2018-08-06 08:19 | Discharge Summary ---
Discharge Summary Discharge Summary _ DATE OF ADMISSION: 08/04/2018 DATE OF DISCHARGE: 08/05/2018. Patient signed AGAINST MEDICAL ADVICE REASON FOR ADMISSION: 73 years old male with recurrent Hodgkin's lymphoma, started on ABVD, was getting chemotherapy at Dr. Wild's office/[facility]. He became short of breath and acutely hypoxemic while getting monoclonal antibody infusion with brentuximab Patient received steroids IV in the office, and subsequently was brought in to emergency department for further evaluation and management . Upon evaluation patient was tachycardic , hypoxemic and required placement on BiPAP. Temperature max 99.2. Laboratory workup revealed pancytopenia with WBC 2.5, platelets 28 ,hemoglobin 11.3, hematocrit 35.8. Elevated d-dimer 2.34. Lactic acid 4.6. Repeated lactic acid-2.1. Troponin 0.96. pro BNP 2466. AST 72, ALT 87. Total bilirubin 2.9, direct bilirubin 2.0. BUN 25, creatinine 0.9. Urinalysis revealed no evidence of UTI. Chest x-ray revealed interstitial and airspace opacities concerning for pneumonia versus pulmonary edema. Patient received IV Solumedrol in emergency department . Patient was started on Lovenox for possible NSTEMI despite thrombocytopenia. Patient received one dose of IV Lasix with immediate improvement in oxygenation. Patient admitted with diagnoses of recurrent non-Hodgkin's lymphoma , elevated troponin ,possible myocardial injury, lactic acidosis, pancytopenia. CONSULTANTS: associate technician Dr. Post pulmonary Dr. Morales ID specialist Dr. Croft lead handler/oncologist Dr. Espinoza [facility]SE: Patient admitted to telemetry floor. Cardiology, pulmonology and oncology seen the patient. Patient declined to see ID specialist, 2-D echo and venous duplex were ordered . Supplemental oxygen titrated to keep pulse oximetry above 92% ,pulmonary toilet provided . BiPAP was on standby as needed. Patient was continued on anticoagulation with Lovenox. Platelet transfusion was ordered. Patient improved with diuretics, pointing more toward diagnosis of pulmonary edema than pneumonia. Per lead handler/oncologist, hold off on Neupogen if ANC above 1500. Per associate technician, slight elevation of troponin I level could be due to tachycardia. Pulmonary embolism was also a consideration given the underlying malignancy. 2D echocardiography could provide some information regarding RV strain and pulmonary hypertension. As mentioned above, ECHO and Venous Duplex were pending. Patient decided to leave AGAINST MEDICAL ADVICE despite full discussion of the risks of leaving. Patient wanted to go to his appointment at [facility] that afternoon at 3: 00pm. Strict return to ED precautions were given to the patient , who verbalized understanding. Patient was counseled on smoking cessation. Patient signed AMA form and left FINAL DIAGNOSES: Recurrent Hodgkin's lymphoma ,on chemotherapy Acute hypoxemic respiratory failure Likely pulmonary edema Possible pneumonia Elevated d-dimer Pancytopenia Abnormal LFT Protein calorie malnutrition Lactic acidosis- resolved Non-onion gap metabolic acidosis Current smoker Elevated troponin, possible NSTEMI I have been assigned to dictate discharge summary for this account. I was not involved in the patient's management. Sheree Huang NP Aug 06, 2018 08:19
== END 2018-08-05 08:50 | disposition left against medical advice (07) | DRG 189 ==
LOC: EDBD 15:44 → EMR 16:45 → 2W 16:47 → EDBEDREQ 19:01
PROC: 5A09357 Assistance with Respiratory Ventilation, Less than 24 Consecutive Hours, Continuous Positive Airway Pressure (ICD-10-PCS; principal; 2018-08-04)
DX: J96.01 Acute respiratory failure with hypoxia (principal); J81.0 Acute pulmonary edema; J18.9 Pneumonia, unspecified organism; I21.4 Non-ST elevation (NSTEMI) myocardial infarction; C81.90 Hodgkin lymphoma, unspecified, unspecified site; D61.818 Other pancytopenia; E87.2 Acidosis; T45.1X5A Adverse effect of antineoplastic and immunosuppressive drugs, initial encounter; Y92.531 Health care provider office as the place of occurrence of the external cause; R79.89 Other specified abnormal findings of blood chemistry; F17.200 Nicotine dependence, unspecified, uncomplicated; F41.9 Anxiety disorder, unspecified
CPT/HCPCS: 36415; 36600; 71045; 80053; 81001; 82248; 82803; 83010; 83036; 83540; 83550; 83605; 83615; 83880; 84443; 84484; 85025; 85379; 85610; 85730; 86850; 86900; 86901; 87040; 93005; 94640; 94660; 94664; 94760; 99285; J7620